=== PATIENT | male | born 2000 | race Caucasian/White ===

== ENCOUNTER 2020-11-03 02:42 | Emergency (ER) | payer SELFPAY ==
[~2020-11-03] VITALS: Ht 180.3 cm; Wt 86.0 kg
[2020-11-03 04:10] VITALS: BP 125/65
[2020-11-03] MEDS ORDERED: MUPI15CR11 TP (05:29)
[2020-11-03] MEDS ORDERED: CLOT15CR27 TP (05:29)
== END 2020-11-03 05:59 | disposition home or self-care (01) ==
LOC: ER 02:42
DX: A74.9 Chlamydial infection, unspecified (principal)
CPT/HCPCS: 99282

== ENCOUNTER 2022-02-15 16:42 | Emergency (ER) | payer SELFPAY ==
[~2022-02-15] VITALS: Ht 180.3 cm; Wt 73.0 kg
[~2022-02-15 16:42] MED LIST: CLOT15CR27 TP; MUPI15CR11 TP
[2022-02-15] MEDS ORDERED: TETANUS, DIPHTHERIA, PERTUSSIS VAC/PF 0.5ML (>10YR OLD) IM ONE (18:00)
[2022-02-15] MEDS ORDERED: SODIUM CHLORIDE 0.9% 1,000 ML IV ONE (18:00)
[2022-02-15] MEDS ORDERED: LIDOCAINE HCL/EPINEPHRINE 1%-EPI 1:100,000 20 ML VIAL INFIL ONE (18:00)
[2022-02-15] MEDS ORDERED: BACITRACIN ZINC OINT UDPKT TOP ONE (18:00)
[2022-02-15] MEDS ORDERED: LIDOCAINE HCL/EPINEPHRINE 1%-EPI 1:100,000 30 ML VIAL INFIL SCH (18:00)
[2022-02-15] MEDS ORDERED: LIDOCAINE HCL/PF 1% 10 MG/ML 5ML VIAL INFIL ONE (18:00)
[2022-02-15 18:29] LABS: HEMATOCRIT. 46.3 % (42.0-52.0); HEMOGLOBIN. 15.5 g/dL (14.0-18.0); MEAN CORPUSCULAR HEMOGLOBIN 29.2 pg (28.0-32.0); MEAN CORPUSCULAR VOLUME 87.1 fL (80.0-94.0); MEAN PLATELET VOLUME 9.1 fl (7.4-10.4); PLATELET 204 x1000/uL (130-400); RED BLOOD CELL COUNT 5.31 mill/uL (4.7-6.1); RED CELL DISTRIBUTION WIDTH 13.9 % (11.6-14.6)
[2022-02-15 18:41] LABS: CHLORIDE 109 mEq/L (98-107)
[2022-02-15 18:49] LABS: ETHANOL BLOOD 106 mg/dL
[2022-02-15 19:33] LABS: PLATELET ESTIMATE NORMAL
[2022-02-15] MEDS ORDERED: TETRACAINE 0.5% OPHTH DROPS 4ML LEFTEYE ONE (20:30)
[2022-02-15] MEDS ORDERED: FLUORESCEIN SODIUM 1MG/STRIP LEFTEYE ONE (20:30)
[2022-02-15] MEDS ORDERED: SULF15DR26 LEFTEYE (21:35)
[2022-02-15] MEDS ORDERED: IBUP-2028 MT (21:35)
[2022-02-15 22:21] VITALS: BP 134/70
== END 2022-02-15 22:26 | disposition home or self-care (01) ==
LOC: ER 16:42
DX: S61.512A Laceration without foreign body of left wrist, initial encounter (principal); V49.59XA Passenger injured in collision with other motor vehicles in traffic accident, initial encounter; Y93.89 Activity, other specified; Y92.89 Other specified places as the place of occurrence of the external cause; Y99.8 Other external cause status
CPT/HCPCS: 12002; 36415; 73110; 73502; 73552; 73560; 80053; 80320; 82962; 85025; 90471; 90715; 96360; 99284; J3490; J7030; Z7610; G0480

== ENCOUNTER 2023-09-07 11:52 | Emergency (ER) | payer OTHER ==
[~2023-09-07] VITALS: Ht 180.3 cm; Wt 91.0 kg
[~2023-09-07 11:52] MED LIST changes: +IBUP-2028 MT; +SULF15DR26 LEFTEYE
[2023-09-07 11:55] VITALS: TEMP 98.4; O2SAT 98
[2023-09-07] MEDS ORDERED: IBUP-2029 MT (15:13)
[2023-09-07 15:34] VITALS: BP 125/84; PULSE 80; RESP 16
== END 2023-09-07 15:35 | disposition home or self-care (01) ==
LOC: ER 11:52
DX: S89.81XA Other specified injuries of right lower leg, initial encounter (principal); X58.XXXA Exposure to other specified factors, initial encounter; Y93.89 Activity, other specified; Y92.89 Other specified places as the place of occurrence of the external cause; Y99.8 Other external cause status
CPT/HCPCS: 73560; 99283